=== PATIENT | male | born 1975 | race Asian ===

== ENCOUNTER 2022-12-28 18:12 | Emergency (ER) | payer BC ==
[~2022-12-28] VITALS: Ht 175.3 cm; Wt 90.7 kg
[2022-12-28 18:16] VITALS: BP_SYST 126
--- NOTE | 2022-12-28 18:22 | NUR ---
DR. MOSES EXAMINING PATIENT IN TRIAGE ROOM
[2022-12-28] MEDS ORDERED: NACL 0.9% 1,000 ML IV ONE (18:30)
[2022-12-28 19:37] LABS: ANION GAP 7 (5-15); CALCIUM 8.4 mg/dL (8.4-11.0); CHLORIDE 104 mmol/L (98-107); CREATININE 0.89 mg/dL (0.55-1.30); GLUCOSE 106 mg/dL (70-99); UREA NITROGEN, BLOOD 17 mg/dL (8-21)
[2022-12-28 19:41] LABS: ALANINE AMINOTRANSFERASE 20 U/L (12-78); ALBUMIN 3.7 g/dL (3.4-4.8); ASPARTATE AMINOTRANSFERASE 13 U/L (10-37); TOTAL BILIRUBIN 0.3 mg/dL (0.0-1.0)
[2022-12-28 19:42] LABS: GFR AFRICAN AMERICAN 118 mL/min (>90)
[2022-12-28 19:43] LABS: BASOPHILS % (AUTO) 0.5 % (0.0-2.0); EOSINOPHILS % (AUTO) 0.2 % (0.0-4.0); HEMATOCRIT 41.8 % (36-54); HEMOGLOBIN 14.6 g/dL (14.0-18.0); LYMPHOCYTES % (AUTO) 29.2 % (20.5-51.5); MEAN CORPUSCULAR HEMOGLOBIN 31 pg (27-31); MEAN CORPUSCULAR HGB CONC 35 % (32-36); MEAN CORPUSCULAR VOLUME 88 fL (79.0-98.0); MONOCYTES # (AUTO) 0.8 K/uL (0.0-1.0); MONOCYTES % (AUTO) 7.6 % (1.7-9.3); NEUTROPHILS # (AUTO) 6.4 K/uL (1.8-7.7); NEUTROPHILS % (AUTO) 62.5 % (40.0-70.0); PLATELET COUNT (AUTO) 223 K/uL (130-430); RED BLOOD CELL COUNT(AUTO) 4.77 MIL/uL (4.2-6.2); RED CELL DISTRIBUTION WIDTH 13.2 % (9.0-15.0); WHITE BLOOD COUNT (AUTO) 10.3 K/uL (4.8-10.8)
--- NOTE | 2022-12-28 20:01 | NUR ---
PATIENT BROUGTH IN COMPLAINING OF MULTIPLE NEAR SYNCOPAL EPISODES X 2 DAYS WITH LIGHTHEADEDNESS AND INTERMITTENT ALTERED MENTAL STATUS. No alleviating or exacerbating factors. Otherwise, patient denies weakness, slurred speech, difficulty speaking, headache, syncope, chest pain, shortness of breath, numbness, tingling, or any other medical complaints at this time.
[2022-12-28 20:36] VITALS: BP_SYST 122
--- NOTE | 2022-12-28 20:36 | NUR ---
Patient given written and verbal discharge instructions and verbalizes understanding. ER MD discussed with patient the results and treatment provided. Patient in stable condition. ID arm band removed. NO RX given. Patient educated on pain management and to follow up with PMD. Pain Scale 0/10 Opportunity for questions provided and answered. Medication side effect fact sheet provided.
== END 2022-12-28 20:36 | disposition home or self-care (01) ==
LOC: SED 18:12
DX: R55 Syncope and collapse (principal); R42 Dizziness and giddiness; R41.82 Altered mental status, unspecified; Z79.899 Other long term (current) drug therapy
CPT/HCPCS: 36415; 70450-TC; 71045; 76376; 80053; 84484; 85025; 93005; 99285